=== PATIENT | male | born 1945 | race Caucasian/White ===

== ENCOUNTER → 2021-04-05 | Outpatient (CLI) | payer MEDICARE ==
[~2021-04-05] MED LIST: ALLOPURINOL 10100 M1 PO; CIPRO250 M1 PO; CLONAZEPAM PO; FISHOIL PO; LORTAB 5 MG/5001 TA1 PO; ZOCOR 10 MG TAB10 MG PO
== END ==
LOC: M.ULTRA 08:55
PROVIDERS: ATTEND Internal Medicine
DX: K21.00 Gastro-esophageal reflux disease with esophagitis, without bleeding (principal); R11.2 Nausea with vomiting, unspecified; R10.13 Epigastric pain; N28.89 Other specified disorders of kidney and ureter

== ENCOUNTER → 2021-07-18 | Outpatient (CLI) | payer OTHER | LOC: M.RAD 08:49 | PROVIDERS: ATTEND Internal Medicine | DX: J84.89 Other specified interstitial pulmonary diseases (principal); J44.9 Chronic obstructive pulmonary disease, unspecified; M47.814 Spondylosis without myelopathy or radiculopathy, thoracic region; M46.04 Spinal enthesopathy, thoracic region ==

== ENCOUNTER → 2021-08-16 | Outpatient (CLI) | payer OTHER | LOC: M.CT 10:37 | PROVIDERS: ATTEND Internal Medicine | DX: J84.9 Interstitial pulmonary disease, unspecified (principal); R91.8 Other nonspecific abnormal finding of lung field; J98.4 Other disorders of lung; R05.3 Chronic cough; K82.8 Other specified diseases of gallbladder; I25.10 Atherosclerotic heart disease of native coronary artery without angina pectoris ==